=== PATIENT | female | born 1950 | race Caucasian/White ===

== ENCOUNTER 2018-09-19 22:14 | Emergency (ER) | payer BC ==
[~2018-09-19] VITALS: Ht 154.9 cm; Wt 80.9 kg
[~2018-09-19 22:14] MED LIST: CARV25TA97 PO; IBUP800T48 PO; METO-448 PO
[2018-09-19 22:22] VITALS: Ht 154.9 cm; Wt 80.9 kg
--- NOTE | 2018-09-19 22:26 | ERD ---
ER Documentation Chief Complaint Chief Complaint head pain HPI The patient is a 68-year-old female, presenting to the ER because of superficial scalp abrasion after she hit the cabinet door when she stood up just prior to arrival. She is an employee. She complains of minimal scalp discomfort, denies headache, neck pain, chest pain, dyspnea, abdominal pain, vomiting, dysuria. ROS All systems reviewed and are negative except as per history of present illness. Medications Home Meds Active Scripts Ibuprofen* (Motrin*) 800 Mg Tab, 800 MG PO Q6H PRN for PAIN AND OR ELEVATED TEMP, #30 TAB Prov:AYLIN UMAÑA PA-C 06/10/15 Reported Medications Metoprolol Tartrate* (Lopressor*) 25 Mg Tab, 25 MG PO BID, TAB 10/30/13 Carvedilol* (Coreg*) 25 Mg Tablet, 25 MG PO BID 10/29/13 Allergies Allergies: Coded Allergies: amlodipine besylate (Verified Allergy, Intermediate, SWELLING, 06/10/15) diphenhydramine HCl (Verified Allergy, Unknown, 06/10/15) PMhx/Soc History of Surgery: Yes (BREAST BIOPSY, HEMMOROIDECTOMY) Anesthesia Reaction: No Hx Neurological Disorder: No Hx Respiratory Disorders: No Hx Cardiac Disorders: Yes (HTN) Hx Psychiatric Problems: No Hx Miscellaneous Medical Probl: No Hx Alcohol Use: No Hx Substance Use: No Hx Tobacco Use: No Physical Exam Vitals Vital Signs Date Temp Pulse Resp B/P (MAP) Pulse Ox O2 O2 Flow FiO2 Time Delivery Rate 09/19/18 98.3 66 16 158/83 99 Room Air 22:29 (108) 09/19/18 66 16 158/83 99 22:22 (108) Physical Exam Const: No acute respiratory distress. Head: Atraumatic. Minimal superficial scalp abrasion at the hairline, no active bleeding Eyes: Normal Conjunctiva. ENT: Normal External Ears, Nose and Mouth. Neck: Full range of motion. No meningismus. Resp: Clear to auscultation bilaterally. Cardio: Regular rate and rhythm Abd: Soft, non distended, normal bowel sounds, non tender. Skin: No petechiae or rashes. Back: No midline or flank tenderness. Ext: No cyanosis, or edema. Neur: Awake and alert. No focal deficit Psych: Normal Mood and Affect. Procedures/MDM MEDICAL MAKING DECISION: The patient is a 68-year-old female, presenting with acute scalp abrasion, was cleaned with normal saline and dressed with bacitracin The differential diagnoses considered include but are not limited to subarachnoid hemorrhage, occult trauma, CVA, meningitis, encephalitis, hypertension, tension, migraine, cluster, narcotic withdrawal, cervical spine disease. Departure Diagnosis: Primary Impression: Scalp abrasion Condition: Good Comments I discussed the findings with the patient. I advised the patient to follow-up with the primary physician in about 5-7 days, sooner if needed and return if any concern. Disclaimer: Inadvertent spelling and grammatical errors are likely due to EHR/dictation software use and do not reflect on the overall quality of patient care. Also, please note that the electronic time recorded on this note does not necessarily reflect the actual time of the patient encounter. DAT RED MD Sep 19, 2018 22:26
[2018-09-19 22:29] VITALS: BP 158/83; PULSE 66; RESP 16
== END 2018-09-19 22:51 | disposition home or self-care (01) ==
LOC: E/R 22:14
DX: S00.01XA Abrasion of scalp, initial encounter (principal); I10 Essential (primary) hypertension; W22.8XXA Striking against or struck by other objects, initial encounter
CPT/HCPCS: 99282